=== PATIENT | female | born 1980 | race Caucasian/White ===

== ENCOUNTER 2018-04-30 12:30 | Inpatient (IN) | payer OTHER ==
[~2018-04-30] VITALS: Ht 177.8 cm; Wt 76.6 kg
[~2018-04-30 12:30] MED LIST: IBUP-1222 PO; OXYC-302 PO; PNV1TABL47 PO
[2018-06-20] MEDS ORDERED: No meds per pt. (15:11)
[2018-07-01] MEDS ORDERED: LACTATED RINGERS 1,000 ML IV SCH (11:02)
[2018-07-01 11:14] LABS: HCG UR SG 1.029 (1.003-1.030)
[2018-07-01] MEDS ORDERED: GABAPENTIN 300 MG CAPSULE PO ONE (11:30)
[2018-07-01] MEDS ORDERED: DIAZEPAM 5 MG TABLET PO ONE (11:30)
[2018-07-01] MEDS ORDERED: ACETAMINOPHEN 500 MG TABLET PO ONE (11:30)
[2018-07-01] MEDS ORDERED: ONDANSETRON ODT 8 MG PO ONE (11:30)
[2018-07-01] MEDS ORDERED: OxyconTIN ER 20 MG TAB.ER PO ONE (11:30)
[2018-07-01] MEDS ORDERED: SCOPOLAMINE PATCH, 1.5MG PATCH.TD72 TD ONE (11:30)
[2018-07-01 11:35] VITALS: BP 113/80
[2018-07-01] MEDS ORDERED: ALPR0.25 PO (11:35)
[2018-07-01] MEDS ORDERED: FENTANYL PF 250 MCG/5ML ONE (11:50)
[2018-07-01] MEDS ORDERED: MIDAZOLAM 1 MG/ML, 2ML ONE (11:50)
[2018-07-01] MEDS ORDERED: METHYLENE BLUE 10 MG/ML 10ML ONE (12:07)
[2018-07-01] MEDS ORDERED: HEPARIN 1,000 UNITS/ML, 10ML ONE (12:07)
[2018-07-01] MEDS ORDERED: EPHEDRINE 50 MG/ML, 1ML ONE (12:39)
[2018-07-01] MEDS ORDERED: KETOROLAC 30 MG/1 ML ONE (12:39)
[2018-07-01] MEDS ORDERED: PROPOFOL 50 ML ONE ×2 (12:48→13:39)
[2018-07-01] MEDS ORDERED: OXYcodone 5 MG/5 ML ORAL.SOL UDC PO PRN (13:30)
[2018-07-01] MEDS ORDERED: PROMETHAZINE 25 MG/ML, 1ML IV PRN (13:30)
[2018-07-01] MEDS ORDERED: ONDANSETRON 2MG/ML, 2ML IV PRN (13:30)
[2018-07-01] MEDS ORDERED: LABETALOL 5MG/ML, 20ML IV PRN (13:30)
[2018-07-01] MEDS ORDERED: FENTANYL PF 100 MCG/2ML IV PRN (13:30)
[2018-07-01] MEDS ORDERED: ALBUTEROL/IPRATROPIUM 2.5MG/0.5MG, 3 ML NPPB PRN (13:30)
[2018-07-01] MEDS ORDERED: MIDAZOLAM 1 MG/ML, 2ML IV PRN (13:30)
[2018-07-01] MEDS ORDERED: HYDROmorphone 2 MG/ML, 1ML IVPush PRN (13:30)
[2018-07-01] MEDS ORDERED: SUCCINYLCHOLINE 20 MG/ML, 10ML ONE (14:08)
[2018-07-01] MEDS ORDERED: CEFAZOLIN 1,000 MG ONE (14:08)
[2018-07-01] MEDS ORDERED: NEOSTIGMINE 1 MG/ML, 10ML ONE (14:08)
[2018-07-01] MEDS ORDERED: DEXAMETHASONE 4 MG/ML, 1ML ONE (14:08)
[2018-07-01] MEDS ORDERED: ROPIvacaine/PF 0.5%, 30 ML ONE (14:08)
[2018-07-01] MEDS ORDERED: ROCURONIUM 10MG/ML,5ML ONE (14:08)
[2018-07-01] MEDS ORDERED: GLYCOPYRROLATE 0.2MG/1ML, 5ML ONE (14:08)
[2018-07-01] MEDS ORDERED: PROPOFOL 10 MG/ML, 20ML ONE (14:08)
[2018-07-01] MEDS ORDERED: FENTANYL PF 100 MCG/2ML ONE (14:13)
[2018-07-01] MEDS ORDERED: MEPERIDINE/PF 50 MG/ML ONE (15:08)
[2018-07-01] MEDS: MEPERIDINE/PF 25MG/0.5ML IVPush PRN ×2 (15:13→15:30)
[2018-07-01] MEDS ORDERED: OXYcodone 5 MG/5 ML ORAL.SOL UDC ONE (15:26)
[2018-07-01] MEDS ORDERED: MEPERIDINE/PF 100 MG/ML IM PRN (16:30)
[2018-07-01] MEDS ORDERED: HYDROmorphone 2 MG/ML, 1ML IV PRN (17:00)
[2018-07-01] MEDS: POTASSIUM CHLORIDE 20 MEQ in D5%-LACTATED RINGERS 1,000 ML IV SCH (18:17)
[2018-07-01] MEDS ORDERED: ONDANSETRON 2MG/ML, 2ML ONE (19:08)
[2018-07-01] MEDS: ONDANSETRON 2MG/ML, 2ML IV PRN (19:10)
[2018-07-01] MEDS: KETOROLAC 30 MG/1 ML IV SCH (20:16)
[2018-07-01] MEDS: SIMETHICONE 80 MG CHEW TAB PO SCH (20:16)
[2018-07-01] MEDS: OXYcodone/APAP 5/325MG TABLET PO PRN (20:16)
[2018-07-02 00:30] VITALS: BP 87/54
[2018-07-02] MEDS: POTASSIUM CHLORIDE 20 MEQ in D5%-LACTATED RINGERS 1,000 ML IV SCH ×2 (02:10→09:13)
[2018-07-02] MEDS: KETOROLAC 30 MG/1 ML IV SCH ×3 (02:11→13:54)
[2018-07-02] MEDS: OXYcodone/APAP 5/325MG TABLET PO PRN ×4 (02:11→11:14)
[2018-07-02 04:50] VITALS: BP 84/53
[2018-07-02 07:26] VITALS: BP 83/55
[2018-07-02] MEDS: SIMETHICONE 80 MG CHEW TAB PO SCH ×3 (08:29→20:58)
[2018-07-02 12:47] VITALS: BP 84/54
[2018-07-02] MEDS ORDERED: HYDROmorphone 2MG TABLET PO PRN (15:00)
[2018-07-02 19:04] VITALS: BP 90/90
[2018-07-02] MEDS: IBUPROFEN 600 MG TABLET PO SCH (20:58)
[2018-07-02] MEDS: SODIUM CHLORIDE FLUSH 10ML SYR IVF SCH (20:58)
[2018-07-02] MEDS ORDERED: OXYcodone/APAP 10/325MG TABLET PO PRN (21:00)
[2018-07-03] MEDS: ONDANSETRON 2MG/ML, 2ML IV PRN (00:15)
[2018-07-03 00:36] VITALS: BP 104/74
[2018-07-03] MEDS ORDERED: PROMETHAZINE 25 MG SUPP PR ONE (01:30)
[2018-07-03] MEDS ORDERED: MEPERIDINE/PF 100 MG/ML IM PRN (02:00)
[2018-07-03 06:00] LABS: CHLORIDE 110 mmol/L (98-107)
[2018-07-03] MEDS: IBUPROFEN 600 MG TABLET PO SCH ×3 (06:00→15:43)
[2018-07-03 06:07] LABS: BASOPHILS # (AUTO) 0.01 x10^3/uL (0-0.1); BASOPHILS % (AUTO) 0 % (0-1); EOSINOPHILS # (AUTO) 0.01 x10^3/uL (0-0.4); EOSINOPHILS % (AUTO) 0 % (1-7); LYMPHOCYTES # (AUTO) 0.59 x10^3/uL (1-3.4); LYMPHOCYTES % (AUTO) 8 % (22-44); MD NO; MEAN CORPUSCULAR VOLUME 82.3 fL (80-100); MEAN PLATELET VOLUME 10.3 fL (7.4-10.4); MONOCYTES # (AUTO) 0.33 x10^3/uL (0.2-0.8); MONOCYTES % (AUTO) 4 % (2-9); NEUTROPHILS # (AUTO) 6.87 x10^3/uL (1.8-6.8); NEUTROPHILS % (AUTO) 88 % (42-75); PLATELET COUNT 123 x10^3/uL (130-400); RED BLOOD COUNT 3.87 x10^6/uL (3.82-5.3); RED CELL DISTRIBUTION WIDTH 13.7 % (9.6-15.2)
[2018-07-03 06:15] LABS: ANION GAP 7 mmol/L (5-15); CREATININE 0.72 mg/dL (0.55-1.02)
[2018-07-03] MEDS ORDERED: OXYcodone/APAP 7.5/325MG TABLET ONE (08:40)
[2018-07-03] MEDS: SIMETHICONE 80 MG CHEW TAB PO SCH ×2 (08:52→15:43)
[2018-07-03] MEDS ORDERED: OXYcodone/APAP 7.5/325MG TABLET PO PRN (09:00)
[2018-07-03] MEDS: SODIUM CHLORIDE FLUSH 10ML SYR IVF SCH (09:00)
[2018-07-03] MEDS ORDERED: ESTRADIOL 0.1 MG/24 HR PATCH TD SCH (09:00)
[2018-07-03 10:00] VITALS: BP 89/60
[2018-07-03] MEDS: OXYcodone/APAP 7.5/325MG TABLET PO PRN ×2 (12:52→18:18)
[2018-07-03 14:35] VITALS: BP 91/58
[2018-07-03] MEDS ORDERED: IBUP-1222 PO (18:25)
[2018-07-03] MEDS ORDERED: ESTR1TAB15 PO (18:26)
[2018-07-03] MEDS ORDERED: OXYC-306 PO (18:26)
== END 2018-07-03 18:47 | disposition home or self-care (01) | DRG 743 ==
LOC: ORIP 07-01 10:15 → 4NOR 07-01 15:59
PROVIDERS: ADMIT Specialist; ATTEND Specialist
PROC: 0UB70ZZ Excision of Bilateral Fallopian Tubes, Open Approach (ICD-10-PCS; 2018-07-01)
PROC: 0UT90ZL Resection of Uterus, Supracervical, Open Approach (ICD-10-PCS; 2018-07-01)
PROC: 3E0T3BZ Introduction of Anesthetic Agent into Peripheral Nerves and Plexi, Percutaneous Approach (ICD-10-PCS; 2018-07-01)
PROC: 0UB20ZZ Excision of Bilateral Ovaries, Open Approach (ICD-10-PCS; principal; 2018-07-01 12:30)
DX: N80.3 Endometriosis of pelvic peritoneum (principal); F32.9 Major depressive disorder, single episode, unspecified; F32.81 Premenstrual dysphoric disorder; N80.1 Endometriosis of ovary; N94.6 Dysmenorrhea, unspecified; Z98.891 History of uterine scar from previous surgery
CPT/HCPCS: 36415; J3490; J7121; 80048; 81025; 85014; 85018; 85025; 88307; G0378; J0690; J1100; J1644; J1885; J2175; J2250; J2405; J2704; J2710; J2795; J3010; J3480; Q0162; J0330; J7120; Q9968

== ENCOUNTER → 2018-06-20 | Outpatient (CLI) | payer OTHER ==
[~2018-06-20] MED LIST changes: +ALPR0.25 PO; +No meds per pt.
== END | disposition home or self-care (01) ==
LOC: STAR 14:41
PROVIDERS: ATTEND Specialist
DX: Z02.9 Encounter for administrative examinations, unspecified (principal)

== ENCOUNTER → 2018-12-04 | Outpatient (CLI) | payer OTHER ==
[~2018-12-04] MED LIST changes: +ESTR1TAB15 PO; +OXYC-306 PO
== END | disposition home or self-care (01) ==
LOC: CFH 12:11
PROVIDERS: ATTEND Specialist
DX: Z12.31 Encounter for screening mammogram for malignant neoplasm of breast (principal)
CPT/HCPCS: 77063; 77067